=== PATIENT | male | born 1985 | race Caucasian/White ===

== ENCOUNTER 2016-09-08 19:20 | Emergency (ER) | payer BC, OTHER ==
[~2016-09-08] VITALS: Ht 172.7 cm; Wt 57.9 kg
[~2016-09-08 19:20] MED LIST: KEPP1000 PO
[2016-09-08 19:22] VITALS: BP 130/83; PULSE 80; RESP 18; TEMP 98.8; O2SAT 99
[2016-09-08] MEDS ORDERED: LEVE250 PO (19:33)
--- NOTE | 2016-09-08 19:43 | PD ---
HPI Chief Complaint: ENT Complaint Time Seen by Provider: 19:28 Travel History International Travel<30 days: No Contact w/Intl Traveler<30days: No Traveled to known affect area: No History of Present Illness HPI 31-year-old male presents to the emergency room for evaluation of sore throat and rash. Sore throat started 2 days ago and rash started today. Patient states he has been feeling ill so he has been taking Tylenol which makes him feel better. Patient states the rash is not itchy. He denies fever, chills, nausea, and vomiting. Mild associated congestion. Sore throat is worse with eating and drinking. He states it is 3/10. PFSH Past Medical History Chemotherapy: Yes (NOT CURRENTLY FOR BRAIN CA) Diminished Hearing: No Neurologic: Yes (BRAIN TUMOR ) Immunizations Current: No Seizures: Yes Tetanus Vaccination: > 5 Years Influenza Vaccination: No Past Surgical History Neurologic Surgery: Yes (CRANIOTOMY,cranial partial lobectomy ) Social History Alcohol Use: No Tobacco Use: No Substance Use: No Allergies-Medications (Allergen,Severity, Reaction): Coded Allergies: No Known Allergies (Unverified , 09/08/16) Reported Meds & Prescriptions Reported Meds & Active Scripts Active Magic Mouthwash Pediatric/Adult Liq (Lidocaine/Diphenhydr/Alum/Mg/Simeth) 60 Ml Susp 5 Ml SWISH-SWAL ACHS Each 5mL contains: Diphenydramine 4.5mg, Viscous Lidocaine 2% 10mg, Maalox Advanced Regular Strength 2.7ml Reported Keppra (Levetiracetam) 250 Mg Tab 250 Mg PO BID Review of Systems Except as stated in HPI: all other systems reviewed are Neg Physical Exam Narrative GENERAL: Well-nourished, well-developed male in no acute distress. Afebrile. Ambulatory. SKIN: Focused skin assessment warm/dry. There is an erythematous maculopapular rash on the torso. HEAD: Normocephalic. EYES: No scleral icterus. No injection or drainage. ENT: Mucosa pink and moist. Mild erythema without edema or exudates. No uvular edema. No uvular, palatal, or tonsillar deviation. Airway patent. NECK: Supple, trachea midline. No JVD or lymphadenopathy. CARDIOVASCULAR: Regular rate and rhythm without murmurs, gallops, or rubs. RESPIRATORY: Breath sounds equal bilaterally. No accessory muscle use. Data Data Last Documented VS Vital Signs Date Time Temp Pulse Resp B/P Pulse Ox O2 Delivery O2 Flow Rate FiO2 09/08/16 19:22 98.8 80 18 130/83 99 Orders Group A Rapid Strep Screen (09/08/16 19:30) Strep Culture (Group A) (09/08/16 19:35) MDM Medical Decision Making Medical Screen Exam Complete: Yes Emergency Medical Condition: Yes Medical Record Reviewed: Yes Differential Diagnosis Streptococcal pharyngitis versus scarlet fever versus viral exanthem Narrative Course 31-year-old male presents to the emergency room for evaluation of sore throat and rash for the past 2 and 1 day, respectively. Patient is afebrile well- appearing in the emergency room. Vital signs stable. Resting comfortably in bed. Physical exam reveals erythematous maculopapular rash and torso. The throat is mildly erythematous without exudates or edema. Rapid strep is negative. This is viral pharyngitis with viral exanthem. Patient discharged with Magic mouthwash and told to follow-up with her primary care physician and return for worsening symptoms. He understands and agrees to plan. Diagnosis Primary Impression: Viral exanthem Additional Impression: Acute viral pharyngitis Referrals: Primary Care Physician Patient Instructions: General Instructions, Pharyngitis (ED), Viral Exanthem ( ED) Additional Instructions: Rest and drink plenty of fluids. Use Magic mouthwash as directed, as needed for pain. Follow-up with a primary care physician. Return to the emergency room for worsening symptoms. Med/Other Pt SpecificInfo: Prescription(s) given Scripts Xenboppxypfiyum-Cybhcuxhn-Kth-Alum-Simeth Liq (Magic Mouthwash Pediatric/Adult Liq)60 Ml Susp5 Ml SWISH-SWAL ACHS #60 ML Ref 0 Each 5mL contains: Diphenydramine 4.5mg, Viscous Lidocaine 2% 10mg, Maalox Advanced Regular Strength 2.7ml Prov:Alexsandra Parada MD 09/08/16 Disposition: 01 DISCHARGE HOME Condition: Stable Gracia Cheung Sep 08, 2016 19:43
[2016-09-08] MEDS ORDERED: MAGICPED SWISH-SWAL (20:08)
== END 2016-09-08 20:17 | disposition home or self-care (01) ==
LOC: PHEFT 19:20
DX: B09 Unspecified viral infection characterized by skin and mucous membrane lesions (principal); J02.8 Acute pharyngitis due to other specified organisms; B97.89 Other viral agents as the cause of diseases classified elsewhere; Z86.69 Personal history of other diseases of the nervous system and sense organs
CPT/HCPCS: 87081; 87880; 99283